=== PATIENT | female | born 1990 | race Caucasian/White ===

== ENCOUNTER → 2018-02-05 06:07 | Outpatient (CLI) | payer OTHER ==
[~2018-02-05 06:07] MED LIST: PRILOSEC20 MG PO; PROVENTIL3 ML/2.5 M IH; ZITHROMAX500 MG PO; ZYRTEC10 MG PO
== END | disposition home or self-care (01) ==
LOC: LAB 06:07
DX: Z00.00 Encounter for general adult medical examination without abnormal findings (principal); R53.83 Other fatigue; Z11.3 Encounter for screening for infections with a predominantly sexual mode of transmission

== ENCOUNTER 2018-03-15 07:09 | Outpatient (CLI) | payer OTHER | END 2018-03-15 07:17 | disposition home or self-care (01) | LOC: RAD 07:09 | DX: M54.2 Cervicalgia (principal); M62.838 Other muscle spasm ==